=== PATIENT | male | born 1940 | race Caucasian/White ===

== ENCOUNTER 2018-12-12 08:32 | Day surgery (SDC) | payer MEDICARE, BC ==
[~2018-12-12] VITALS: Ht 182.9 cm; Wt 93.0 kg
[2018-12-12 09:00] VITALS: BP 116/72
--- NOTE | 2018-12-12 09:15 | NUR ---
AFTER ASSESSING VIA ULTRASOUND AND NOT FINDING ANY FLUID ACCUMULATION WARRANTING DRAINAGE, ADRIENNE LIMA ORDERED CHEST XRAY. THORA FOR DIAGNOSTIC ONLY. DR COOPER WAS ABLE TO EXTRACT APPROX 15MLOF FLUID FROM RIGHT SIDE, SAMPLE WAS SENT FOR CYTOLOGY.
[2018-12-12 09:40] VITALS: BP 121/65
[2018-12-12] MEDS ORDERED: CHOL100046 PO (17:28)
[2018-12-12] MEDS ORDERED: LISI-600 PO (17:28)
[2018-12-12] MEDS ORDERED: CALC600T2 PO (17:28)
[2018-12-12] MEDS ORDERED: ASPI-1265 PO (17:28)
[2018-12-12] MEDS ORDERED: FIBER PO (17:28)
[2018-12-12] MEDS ORDERED: MULT-1085 PO (17:28)
== END 2018-12-12 10:25 | disposition home or self-care (01) ==
LOC: SSTAY O 08:32
PROVIDERS: ATTEND Radiology Diagnostic Radiology
DX: J90 Pleural effusion, not elsewhere classified (principal); Z87.891 Personal history of nicotine dependence; Z79.899 Other long term (current) drug therapy
CPT/HCPCS: 32555; 71045; C1729